=== PATIENT | female | born 1975 | race African-American/Black ===

== ENCOUNTER 2017-04-02 15:50 | Emergency (ER) | payer OTHER ==
[~2017-04-02 15:50] MED LIST: HYDR-3533 PO; NAPR500 PO; ROBA750T3 PO
[2017-04-02 15:58] VITALS: BP 136/80; PULSE 95; RESP 20; TEMP 97.8; O2SAT 99
[2017-04-02] MEDS ORDERED: VENTAER INH (16:15)
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
[2017-04-02] MEDS ORDERED: DICL75TA PO (17:09)
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
[2017-04-02] MEDS ORDERED: ACETAMINOPHEN/HYDROcodone 325 MG/5 MG TAB PO ONE (17:15)
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
[2017-04-02 17:32] VITALS: BP 138/80
== END 2017-04-02 17:00 | disposition home or self-care (01) ==
LOC: NEPK 15:50
DX: S93.422A Sprain of deltoid ligament of left ankle, initial encounter (principal); S60.222A Contusion of left hand, initial encounter; S60.221A Contusion of right hand, initial encounter; G89.29 Other chronic pain; J45.909 Unspecified asthma, uncomplicated; V43.52XA Car driver injured in collision with other type car in traffic accident, initial encounter; Y92.410 Unspecified street and highway as the place of occurrence of the external cause; Z72.0 Tobacco use
CPT/HCPCS: 73120; 73630; 99284; E0113

== ENCOUNTER 2017-08-14 13:49 | Emergency (ER) | payer OTHER ==
[~2017-08-14] VITALS: Ht 175.3 cm; Wt 110.0 kg
[~2017-08-14 13:49] MED LIST changes: +DICL75TA PO; -HYDR-3533 PO; -NAPR500 PO; -ROBA750T3 PO; +VENTAER INH
[2017-08-14 13:51] VITALS: BP 134/75; PULSE 101; RESP 16; TEMP 98.4; O2SAT 98
[2017-08-14 14:05] VITALS: PULSE 96; TEMP 98.6; O2SAT 98
[2017-08-14 15:10] VITALS: BP 135/72; PULSE 96; RESP 14; TEMP 98.8; O2SAT 100
[2017-08-14] MEDS ORDERED: SODIUM CHLOR 0.9% 1000 ML INJ 1,000 ML IV SCH (15:14)
[2017-08-14] MEDS ORDERED: SODIUM CHLORIDE 0.9% FLUSH 10 ML FLUSH IVF PRN (15:15)
[2017-08-14 15:20] VITALS: O2SAT 99
[2017-08-14 15:44] LABS: AUTOMATED NEUTROPHIL # 5.5 TH/MM3 (1.8-7.7); BASOPHIL # 0.1 TH/MM3 (0-0.2); BASOPHIL % 1.2 % (0.0-2.0); EOSINOPHIL % 10.2 % (0.0-4.0); HEMATOCRIT 33.8 % (35.0-46.0); HEMO FLAGS DIFF FINAL; LYMPH % 26.1 % (9.0-44.0); LYMPHOCYTE # 2.6 TH/MM3 (1.0-4.8); MEAN CELL VOLUME 80.6 FL (80.0-100.0); MEAN CORPUSCULAR HEMOGLOBIN 26.2 PG (27.0-34.0); MEAN CORPUSCULAR HGB CONC 32.5 % (32.0-36.0); MONO % 7.7 % (0.0-8.0); NEUT % 54.8 % (16.0-70.0); PLATELET COUNT 252 TH/MM3 (150-450); RED BLOOD COUNT 4.19 MIL/MM3 (4.00-5.30); RED CELL DISTRIBUTION WIDTH 19.1 % (11.6-17.2); WHITE BLOOD COUNT 10.1 TH/MM3 (4.0-11.0)
[2017-08-14 15:53] LABS: INTERNATIONAL NORMALIZED RATIO 0.9 RATIO; PROTHROMBIN TIME - PATIENT 10.1 SEC (9.8-11.6)
--- NOTE | 2017-08-14 15:56 | PD ---
HPI Chief Complaint: GI Complaint Time Seen by Provider: 15:13 Travel History International Travel<30 days: No Contact w/Intl Traveler<30days: No Traveled to known affect area: No History of Present Illness HPI 42-year-old female came to the emergency room with history of rectal bleeding. Patient says she has had multiple episodes of stool mixed with blood for past 3 days. She's been getting occasional abdominal cramps. She has history of colitis in the past. No history of nausea vomiting. Last episode of bloody stool was earlier this morning. Patient is hemodynamically stable. No history of recent antibiotics or travel out of the country. 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 She is otherwise a relatively healthy person. [facility] Past Medical History Narrative Medical List of her past medical, surgical, social and family history is reviewed from the nursing note. Asthma: Yes Blood Disorders: No Cancer: No Cardiovascular Problems: No Diabetes: No Diminished Hearing: Yes (TRAUMA TO R EAR IN ) Endocrine: No Gastrointestinal Disorders: Yes (COLITIS) Genitourinary: No Hepatitis: No Hiatal Hernia: No Immune Disorder: No Musculoskeletal: Yes (LUMBAR DDD) Neurologic: No Psychiatric: No Reproductive: No Respiratory: Yes Sickle Cell Disease: Yes (SICKLE CELL TRAIT) Thyroid Disease: No (BEING LOOKED INTO) ?: Not LMP: 07/16/17 Menopausal: No : 3 Para: 4 Tubal Ligation: Yes Past Surgical History Abdominal Surgery: No AICD: No Arteriovenous Shunt: No Cardiac Surgery: No Section: Yes (X 2) Ear Surgery: No Endocrine Surgery: No Eye Surgery: No Genitourinary Surgery: No Gynecologic Surgery: Yes (C SECTION) Joint Replacement: No Oral Surgery: No Pacemaker: No Thoracic Surgery: No Other Surgery: Yes (BUNIONECTOMY) Social History Alcohol Use: Yes (RARE) Tobacco Use: Yes (2-3 CIGS DAILY) Substance Use: No Allergies-Medications (Allergen,Severity, Reaction): Coded Allergies: acetaminophen (Unverified Allergy, Severe, Hives, 08/14/17) morphine (Unverified Allergy, Severe, HIVES, 08/14/17) penicillin V (Unverified Allergy, Severe, HIVES, 08/14/17) propoxyphene (Unverified Allergy, Severe, Hives, 08/14/17) Comments List of her allergies reviewed from the nursing note. Reported Meds & Prescriptions Reported Meds & Active Scripts Active Ciprofloxacin (Ciprofloxacin HCl) 250 Mg Tab 250 Mg PO BID 10 Days Flagyl (Metronidazole) 250 Mg Tab 250 Mg PO TID [address] (Diclofenac Sodium) 75 Mg Tabdr 75 Mg PO BID Reported Ventolin Hfa 18 GM Inh (Albuterol Sulfate) 90 Mcg/Act Aer 2 Puff INH Q4-6H PRN Narrative Medication List of her home medications reviewed from the nursing note. Review of Systems Except as stated in HPI: all other systems reviewed are Neg Physical Exam Narrative GENERAL: Awake, alert, obese, no obvious distress SKIN: Focused skin assessment warm/dry. HEAD: Atraumatic. Normocephalic. EYES: Pupils equal and round. No scleral icterus. No injection or drainage. ENT: No nasal bleeding or discharge. Mucous membranes pink and moist. NECK: Trachea midline. No JVD. CARDIOVASCULAR: Regular rate and rhythm. No murmur appreciated. RESPIRATORY: No accessory muscle use. Clear to auscultation. Breath sounds equal bilaterally. GASTROINTESTINAL: Abdomen soft, non-tender, nondistended. Hepatic and splenic margins not palpable. External hemorrhoid with no thrombosis MUSCULOSKELETAL: No obvious deformities. No clubbing. No cyanosis. No edema. NEUROLOGICAL: Awake and alert. No obvious cranial nerve deficits. Motor grossly within normal limits. Normal speech. PSYCHIATRIC: Appropriate mood and affect; insight and judgment normal. Data Data Last Documented VS Vital Signs Date Time Temp Pulse Resp B/P (MAP) Pulse Ox O2 Delivery O2 Flow Rate FiO2 08/14/17 17:03 08/14/17 15:20 99 Room Air 08/14/17 15:10 98.8 96 14 Orders Orders Basic Metabolic Panel (Bmp) (08/14/17 15:14) Complete Blood Count With Diff (08/14/17 15:14) Prothrombin Time / Inr (Pt) (08/14/17 15:14) Type And Screen (08/14/17 15:14) Ecg Monitoring (08/14/17 15:14) Iv Access Insert/Monitor (08/14/17 15:14) Oximetry (08/14/17 15:14) Sodium Chlor 0.9% 1000 Ml Inj (Ns 1000 M (08/14/17 15:14) Sodium Chloride 0.9% Flush (Ns Flush) (08/14/17 15:15) Metronidazole (Flagyl) (08/14/17 16:15) Ciprofloxacin (Cipro) (08/14/17 16:15) AGID (08/14/17 15:25) Labs Laboratory Tests Test 08/14/17 15:25 White Blood Count 10.1 TH/MM3 Red Blood Count 4.19 MIL/MM3 Hemoglobin 11.0 GM/DL Hematocrit 33.8 % Mean Corpuscular Volume 80.6 FL Mean Corpuscular Hemoglobin 26.2 PG Mean Corpuscular Hemoglobin Concent 32.5 % Red Cell Distribution Width 19.1 % Platelet Count 252 TH/MM3 Mean Platelet Volume 8.3 FL Neutrophils (%) (Auto) 54.8 % Lymphocytes (%) (Auto) 26.1 % Monocytes (%) (Auto) 7.7 % Eosinophils (%) (Auto) 10.2 % Basophils (%) (Auto) 1.2 % Neutrophils # (Auto) 5.5 TH/MM3 Lymphocytes # (Auto) 2.6 TH/MM3 Monocytes # (Auto) 0.8 TH/MM3 Eosinophils # (Auto) 1.0 TH/MM3 Basophils # (Auto) 0.1 TH/MM3 CBC Comment DIFF FINAL Differential Comment Prothrombin Time 10.1 SEC Prothromb Time International Ratio 0.9 RATIO Blood Urea Nitrogen 8 MG/DL Creatinine 0.85 MG/DL Random Glucose 73 MG/DL Calcium Level 9.4 MG/DL Sodium Level 141 MEQ/L Potassium Level 3.6 MEQ/L Chloride Level 107 MEQ/L Carbon Dioxide Level 28.5 MEQ/L Anion Gap 6 MEQ/L Estimat Glomerular Filtration Rate 90 ML/MIN [facility] Medical Decision Making Medical Screen Exam Complete: Yes Emergency Medical Condition: Yes Medical Record Reviewed: Yes Differential Diagnosis Colitis, internal hemorrhoids, lower GI bleed Narrative Course 3:55 PM awaiting for chemistry. CBC is back and within acceptable limits. Patient is getting 1 L of IV fluid bolus. I asked her to give a stool sample if she can so that C. difficile can be tested. If blood test results are within acceptable limits patient will be discharged home to be followed up by her primary care. 4:10 PM patient did not have anymore bowel movements since she's been here. Labs are within acceptable limit. I will give her dose of Flagyl and ciprofloxacin. Patient will be discharged home. Procedures EKG Prior to Arrival: No HemaPrompt Point of Care Internal Pos. & Neg. Controls: Passed Fecal Specimen Occult Blood: Negative Diagnosis Primary Impression: Colitis Referrals: Primary Care Physician Additional Instructions: Please return to the ER if the condition worsens or any other new concerns. Take the medication as per the prescription direction. Follow-up with your primary care next couple days. Med/Other Pt SpecificInfo: Prescription(s) given Scripts Ciprofloxacin (Ciprofloxacin) 250 Mg Tab 250 MG PO BID for Infection for 10 Days, #20 TAB 0 Refills Prov: Winsome Keating MD 08/14/17 Metronidazole (Flagyl) 250 Mg Tab 250 MG PO TID for Infection for 10 Days, TAB 0 Refills Prov: Winsome Keating MD 08/14/17 Disposition: 01 DISCHARGE HOME Condition: Stable Winsome Keating MD Aug 14, 2017 15:56
[2017-08-14 16:03] LABS: BICARBONATE 28.5 MEQ/L (21.0-32.0); POTASSIUM 3.6 MEQ/L (3.5-5.1)
[2017-08-14] MEDS ORDERED: METR250 PO (16:12)
[2017-08-14] MEDS ORDERED: CIPR250T2 PO (16:12)
[2017-08-14] MEDS ORDERED: metroNIDAZOLE 250 MG TAB PO ONE (16:15)
[2017-08-14] MEDS ORDERED: CIPROFLOXACIN 500 MG TAB PO ONE (16:15)
== END 2017-08-14 17:04 | disposition home or self-care (01) ==
LOC: NEPE 13:49
DX: K52.9 Noninfective gastroenteritis and colitis, unspecified (principal); J45.909 Unspecified asthma, uncomplicated; D57.3 Sickle-cell trait; F17.210 Nicotine dependence, cigarettes, uncomplicated; Z79.899 Other long term (current) drug therapy; Z88.5 Allergy status to narcotic agent; Z88.0 Allergy status to penicillin; Z88.8 Allergy status to other drugs, medicaments and biological substances
CPT/HCPCS: 80048; 85025; 85610; 86077; 86850; 86870; 86900; 86901; 86902; 86920; 86922; 96360; 99284; J7030

== ENCOUNTER 2018-03-02 18:30 | Emergency (ER) | payer OTHER ==
[~2018-03-02] VITALS: Ht 175.3 cm; Wt 111.0 kg
[~2018-03-02 18:30] MED LIST changes: +CIPR250T2 PO; +METR250 PO
[2018-03-02 18:31] VITALS: BP 159/91; PULSE 89; RESP 18; TEMP 99.2; O2SAT 100
[2018-03-02] MEDS ORDERED: MEDR4PAK PO (18:54)
[2018-03-02] MEDS ORDERED: ROBA500T PO (18:54)
--- NOTE | 2018-03-02 18:58 | PD ---
HPI Chief Complaint: Back/ Neck Pain or Injury Time Seen by Provider: 18:43 Travel History International Travel<30 days: No Contact w/Intl Traveler<30days: No Traveled to known affect area: No History of Present Illness HPI 42-year-old female with a history of degenerative disc disease of the spine presents emergency department for evaluation of left-sided sciatica that started yesterday. Patient states that she believes she may have pulled a muscle developed this pain. Patient states that it has worsened after working today and she is having difficulty walking because of the pain. Says that over the last week she went to [place] and may have lifted some suitcases and other heavier items which may have exacerbated this pain. 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 She denies any significant weakness but feels as if she cannot completely straighten out the leg because of the pain. She says that she has radiating pain from the lower left paraspinous muscle region and glutes to the anterior thigh. Pain is moderate in severity, worse with movement and walking. Says that the last time she had this pain she was given Dilaudid and this holds her over for 1 year. She denies fever, chills, saddle anesthesia, loss of bowel or bladder function, history of IV drug use. PFSH Past Medical History Asthma: Yes Blood Disorders: No Cancer: No Cardiovascular Problems: No Diabetes: No Diminished Hearing: Yes (TRAUMA TO R EAR IN ) Endocrine: No Gastrointestinal Disorders: Yes (COLITIS) Genitourinary: No Hepatitis: No Hiatal Hernia: No Hypertension: No Immune Disorder: No Medical other: No Musculoskeletal: Yes (LUMBAR DDD) Neurologic: No Psychiatric: No Reproductive: No Respiratory: Yes Sickle Cell Disease: Yes (SICKLE CELL TRAIT) Thyroid Disease: No (BEING LOOKED INTO) Tetanus Vaccination: < 5 Years ?: Not LMP: 02/13/18 Menopausal: No : 3 Para: 4 Tubal Ligation: Yes Past Surgical History Abdominal Surgery: No AICD: No Arteriovenous Shunt: No Cardiac Surgery: No Section: Yes (X 2) Ear Surgery: No Endocrine Surgery: No Eye Surgery: No Genitourinary Surgery: No Gynecologic Surgery: Yes (C SECTION) Joint Replacement: No Neurologic Surgery: No Oral Surgery: No Pacemaker: No Thoracic Surgery: No Other Surgery: Yes (BUNIONECTOMY) Social History Alcohol Use: Yes (RARE) Tobacco Use: Yes (2-3 CIGS DAILY) Substance Use: No Allergies-Medications (Allergen,Severity, Reaction): Coded Allergies: acetaminophen (Unverified Allergy, Severe, PT DENIES, 03/02/18) morphine (Unverified Allergy, Severe, HIVES, 03/02/18) penicillin V (Unverified Allergy, Severe, HIVES, 03/02/18) propoxyphene (Unverified Allergy, Severe, Hives, 03/02/18) Reported Meds & Prescriptions Reported Meds & Active Scripts Active Medrol Dosepak (Methylprednisolone) 4 Mg Dspk 4 Mg PO DIRECTED Per Pharmacist direction Robaxin (Methocarbamol) 500 Mg Tab 500 Mg PO TID 5 Days Reported Ventolin Hfa 18 GM Inh (Albuterol Sulfate) 90 Mcg/Act Aer 2 Puff INH Q4-6H PRN Review of Systems Except as stated in HPI: all other systems reviewed are Neg Physical Exam Narrative GENERAL: WD, WN obese SKIN: Focused skin assessment warm/dry. HEAD: Atraumatic. Normocephalic. EYES: Pupils equal and round. No scleral icterus. No injection or drainage. ENT: No nasal bleeding or discharge. Mucous membranes pink and moist. NECK: Trachea midline. No JVD. CARDIOVASCULAR: Regular rate and rhythm. No murmur appreciated. RESPIRATORY: No accessory muscle use. Clear to auscultation. Breath sounds equal bilaterally. MUSCULOSKELETAL: No obvious deformities. No clubbing. No cyanosis. No edema. BACK: No CVA tenderness. No rash. No point tenderness on palpation of the spine. There is tenderness to palpation to the upper left glutes. Neurovascular intact. NEUROLOGICAL: Awake and alert. No obvious cranial nerve deficits. Motor grossly within normal limits. Normal speech. PSYCHIATRIC: Appropriate mood and affect; insight and judgment normal. Data Data Last Documented VS Vital Signs Date Time Temp Pulse Resp B/P (MAP) Pulse Ox O2 Delivery O2 Flow Rate FiO2 03/02/18 18:31 99.2 89 18 159/91 (113) 100 Orders Orders Dexamethasone Inj (Decadron Inj) (03/02/18 19:00) Orphenadrine Inj (Norflex Inj) (03/02/18 19:00) Ed Discharge Order (03/02/18 19:17) [facility] Medical Decision Making Medical Screen Exam Complete: Yes Emergency Medical Condition: Yes Differential Diagnosis Lumbago, muscle spasm, sciatica Narrative Course 42-year-old female with a history of degenerative disc disease of the spine presents emergency department for evaluation of left-sided sciatica that started yesterday. Patient states that she believes she may have pulled a muscle developed this pain. Patient states that it has worsened after working today and she is having difficulty walking because of the pain. Says that over the last week she went to [place] and may have led to some suitcases and heavier items and she should have. In addition, today was her first day work and she believes that because of the additional duties she may have exacerbated the symptoms. She denies any significant weakness but feels as if she cannot completely straighten out the leg because of the pain. She says that she has radiating pain from the lower left paraspinous muscle region and glutes to the anterior thigh. Pain is moderate in severity, worse with movement and walking. She denies fever, chills, saddle anesthesia, loss of bowel or bladder function, history of IV drug use. Vital signs stable. Physical exam findings consistent with sciatica. No red flag signs or symptoms. Patient will be administered Decadron and Norflex. This is what she received previously certainly believe patient may be mistaken she said that she received Dilaudid. Patient be discharged with Medrol Dosepak and Robaxin. She is advised to follow-up with a primary care physician. Consider follow-up with orthopedic physician for further evaluation. Return to the emergency department worsening or persistent symptoms. Diagnosis Primary Impression: Lumbago Qualified Codes: M54.42 - Lumbago with sciatica, left side Referrals: Orthopedist Primary Care Physician Departure Forms: Tests/Procedures, Work Release Enter return to work date: Mar 04, 2018 Additional Instructions: Perform light stretches of the lower back and legs, and alternate heat and ice packs. If you develop increased pain, weakness, fever, chills, or bowel or bladder issues, return to the ED for further treatment and evaluation. Follow up with your primary care physician in 2-3 days. Scripts Methylprednisolone Dosepak (Medrol Dosepak) 4 Mg Dspk 4 MG PO DIRECTED, #1 DSPK 0 Refills Per Pharmacist direction Prov: Jason Vail MD 03/02/18 Methocarbamol (Robaxin) 500 Mg Tab 500 MG PO TID for Muscle Spasm for 5 Days, TAB 0 Refills Prov: Jason Vail MD 03/02/18 Disposition: 01 DISCHARGE HOME Condition: Stable Debra Ochoa Mar 02, 2018 18:58
[2018-03-02] MEDS ORDERED: ORPHENADRINE INJ 60 MG/2 ML AMP IM ONE (19:00)
[2018-03-02] MEDS ORDERED: DEXAMETHASONE SOD PHOS 20 MG/5 ML VIAL IM ONE (19:00)
== END 2018-03-02 19:55 | disposition home or self-care (01) ==
LOC: PHEFT 18:30
DX: M54.42 Lumbago with sciatica, left side (principal); J45.909 Unspecified asthma, uncomplicated; F17.210 Nicotine dependence, cigarettes, uncomplicated
CPT/HCPCS: 96372; 99283; J1100; J2360